=== PATIENT | female | born 1955 | race Caucasian/White ===

== ENCOUNTER 2018-02-07 12:59 | Inpatient (IN) | END 2018-02-14 19:50 | DRG 65 ==

== ENCOUNTER 2018-02-14 20:14 | Inpatient (IN) | END 2018-03-12 15:00 | disposition home health service (06) | DRG 945 ==

== ENCOUNTER 2018-10-10 23:01 | Inpatient (IN) | payer OTHER ==
[~2018-10-10] VITALS: Ht 134.6 cm; Wt 58.0 kg
[~2018-10-10 23:01] MED LIST: AMLO2.5T78 PO; AMOX500C2 PO; ASPI-831 PO; ATOR-2 PO; CLAR500T PO; LISI10TA2 PO; METF-849 PO; PANT40TA4 PO
[2018-10-11] MEDS ORDERED: ONDANSETRON 4 MG INJ IV STA (00:41)
[2018-10-11] MEDS ORDERED: morphine 4 MG/ML VIAL IV STA (00:41)
[2018-10-11] MEDS ORDERED: SOD CHLORIDE 0.9% 500 ML IV STA (00:41)
[2018-10-11] MEDS ORDERED: ONDANSETRON 4 MG INJ IV PRN ×2 (04:00→13:30)
[2018-10-11] MEDS ORDERED: ACETAMINOPHEN 325 MG TAB PO PRN ×2 (04:00→13:30)
--- NOTE | 2018-10-11 05:47 | ERD ---
ER Documentation Chief Complaint Chief Complaint ABD PAIN NO N/V/D/C; STARTED THIS EVEING; HX OF DM HPI Is a 63-year-old female coming with abdominal pain. She denies nausea vomiting diarrhea or constipation. Patient said the pain started earlier this evening. Patient has a known pelvic mass and has not sought outpatient treatment as of yet. Denies any fevers or chills. Denies any other current complaints. Pain is mild to moderate intensity with no exacerbating or alleviating factors with no radiations. ROS All systems reviewed and are negative except as per history of present illness. Medications Home Meds Active Scripts Pantoprazole* (Pantoprazole*) 40 Mg Tablet.dr, 40 MG PO BID@0600,1800, #60 TAB Prov:LINDA LINTON NP 02/12/18 Aspirin (Aspirin) 81 Mg Chew, 81 MG PO DAILY, #30 TAB Prov:LINDA LINTON NP 02/12/18 Lisinopril* (Lisinopril*) 10 Mg Tablet, 10 MG PO BID, #60 TAB Prov:LINDA LINTON NP 02/12/18 Atorvastatin* (Atorvastatin*) 80 Mg Tablet, 80 MG PO HS, #30 TAB Prov:LINDA LINTON NP 02/12/18 Amlodipine Besylate* (Amlodipine Besylate*) 2.5 Mg Tablet, 2.5 MG PO DAILY, #30 TAB Prov:LINDA LINTON NP 02/12/18 Amoxicillin* (Amoxicillin*) 500 Mg Cap, 500 MG PO BID, #20 CAP Stop date 02/20/2018. Prov:LINDA LINTON NP 02/12/18 Clarithromycin* (Clarithromycin*) 500 Mg Tablet, 500 MG PO BID for 5 Days, TAB Stop date 02/17/2018 Prov:LINDA LINTON NP 02/12/18 Reported Medications Metformin* (Glucophage*) 500 Mg Tab, 500 MG PO BID WITH MEALS, #90 TAB 02/07/18 Allergies Allergies: Coded Allergies: No Known Allergy (Unverified , 02/07/18) PMhx/Soc History of Surgery: Yes Anesthesia Reaction: No Hx Neurological Disorder: No (none prior to current medical condition) Hx Respiratory Disorders: No Hx Cardiac Disorders: Yes Hx Psychiatric Problems: No Hx Miscellaneous Medical Probl: Yes Hx Alcohol Use: No Hx Substance Use: No Hx Tobacco Use: No Physical Exam Vitals Vital Signs Date Temp Pulse Resp B/P (MAP) Pulse Ox O2 O2 Flow FiO2 Time Delivery Rate 10/10/18 98.3 87 19 133/65 100 23:03 (87) Physical Exam Const: No acute distress Head: Atraumatic Eyes: Normal Conjunctiva ENT: Normal External Ears, Nose and Mouth. Neck: Full range of motion. No meningismus. Resp: Clear to auscultation bilaterally Cardio: Regular rate and rhythm, no murmurs Abd: Soft, non tender, non distended. Normal bowel sounds Skin: No petechiae or rashes Back: No midline or flank tenderness Ext: No cyanosis, or edema Neur: Awake and alert Psych: Normal Mood and Affect Result Diagram: 10/11/18 0054 10/11/18 0054 Results 24 hrs Laboratory Tests Test 10/11/18 00:40 10/11/18 00:54 Urine Color YELLOW Urine Clarity CLEAR Urine pH 6.0 Urine Specific [place] 1.008 Urine Ketones NEGATIVE mg/dL Urine Nitrite NEGATIVE mg/dL Urine Bilirubin NEGATIVE mg/dL Urine Urobilinogen NEGATIVE mg/dL Urine Leukocyte Esterase NEGATIVE Brandie/ul Urine Hemoglobin NEGATIVE mg/dL Urine Glucose NEGATIVE mg/dL Urine Total Protein NEGATIVE mg/dl White Blood Count 13.7 10^3/ul Red Blood Count 4.51 10^6/ul Hemoglobin 12.2 g/dl Hematocrit 37.7 % Mean Corpuscular Volume 83.6 fl Mean Corpuscular Hemoglobin 27.1 pg Mean Corpuscular Hemoglobin Concent 32.4 g/dl Red Cell Distribution Width 13.3 % Platelet Count 366 10^3/UL Mean Platelet Volume 10.0 fl Immature Granulocytes % 0.400 % Neutrophils % 72.2 % Lymphocytes % 19.5 % Monocytes % 4.6 % Eosinophils % 2.6 % Basophils % 0.7 % Nucleated Red Blood Cells % 0.0 /100WBC Immature Granulocytes # 0.050 10^3/ul Neutrophils # 9.9 10^3/ul Lymphocytes # 2.7 10^3/ul Monocytes # 0.6 10^3/ul Eosinophils # 0.4 10^3/ul Basophils # 0.1 10^3/ul Nucleated Red Blood Cells # 0.0 10^3/ul Sodium Level 139 mmol/L Potassium Level 4.0 mmol/L Chloride Level 101 mmol/L Carbon Dioxide Level 24 mmol/L Anion Gap 14 Blood Urea Nitrogen 11 mg/dl Creatinine 0.99 mg/dl Est Glomerular Filtrat Rate mL/min 56 mL/min Glucose Level 118 mg/dl Calcium Level 10.2 mg/dl Total Bilirubin 0.6 mg/dl Direct Bilirubin 0.00 mg/dl Indirect Bilirubin 0.6 mg/dl Aspartate Amino Transf (AST/SGOT) 24 IU/L Alanine Aminotransferase (ALT/SGPT) 27 IU/L Alkaline Phosphatase 127 IU/L Troponin I < 0.012 ng/ml Total Protein 9.0 g/dl Albumin 4.7 g/dl Globulin 4.30 g/dl Albumin/Globulin Ratio 1.09 Lipase 140 U/L Current Medications Medications Dose Sig/Asha Start Time Status Last (Trade) Ordered Route PRN Stop Time Admin Dose Reason Admin Sodium 500 ml @ Q1H STAT 10/11/18 DC 10/11/18 Chloride 500 mls/hr IV 00:41 00:54 10/11/18 01:40 Morphine 4 mg ONCE STAT 10/11/18 DC 10/11/18 Sulfate IV 00:41 00:54 (morphine) 10/11/18 00:43 Ondansetron 4 mg ONCE STAT 10/11/18 DC 10/11/18 HCl (Zofran IV 00:41 00:54 Inj) 10/11/18 00:43 Ondansetron 4 mg BRIDGE ORDER 10/11/18 HCl (Zofran PRN IV 04:00 Inj) NAUSEA/VOMITI 10/12/18 03:59 NG 650 mg ER BRIDGE 10/11/18 Acetaminophen PRN PO 04:00 (Tylenol .MILD PAIN 10/12/18 03:59 Tab) 1-3 OR TEMP Procedures/MDM EKG: Rate/Rhythm: [Normal Sinus Rhythm] QRS, ST, T-waves: [No changes consistent w/ acute ischemia] Impression: [No evidence of ischemia or arrhythmia] Chest X-ray 1V Interpreted by me: Soft Tissue: No acute abnormalities Bones: No acute abnormalities Mediastinum/Cardiac Silhouette/Lungs: [No acute abnormalities] Medical decision makin-year-old female comes of planes of abdominal pain. She has an enlarging cystic pelvic structure. This is likely neoplastic. Patient will need to be transferred for higher level of care. [facility] has been made aware. They are trying to place the patient. Will be endorsed oncoming physician at 6 AM. Departure Diagnosis: Primary Impression: Abdominal pain Abdominal location: unspecified location Qualified Codes: R10.9 - Unspecified abdominal pain Additional Impression: Abdominal or pelvic swelling, mass, or lump, right lower quadrant Condition: Stable DOMINIQUE FARMER Oct 11, 2018 05:47
[2018-10-11 08:15] VITALS: Ht 134.6 cm; Wt 58.0 kg
[2018-10-11 08:24] VITALS: BP 147/66; PULSE 59; RESP 18
--- NOTE | 2018-10-11 13:19 | HP ---
Date/Time of Note Date/Time of Note DATE: 10/11/18 TIME: 13:12 Assessment/Plan VTE Prophylaxis SCD applied (from Nsg): Yes Pharmacological prophylaxis: NA/contraindicated Pharm contraindication: low risk/ambulating Lines/Catheters IV Catheter Type (from Nrsg): Saline Lock Assessment/Plan Hospital Course SUBJECTIVE: Currently patient's pain is improved. OBJECTIVE: Vital signs-see below PHYSICAL EXAM: Constitutional: Well-developed, adequately built, lying in bed comfortably. Psych: nl mood/affect, no complaints Head: atraumatic, normocephalic Eyes: nl conjunctiva, nl sclera ENMT: mucosa pink and moist, nl external ears & nose Neck: non-tender, supple Respiratory: clear to auscultation, normal air movement Cardiovascular: nl pulses, regular rate and rhythm Gastrointestinal: Tenderness to lower abdomen/pelvic area. No rebound tenderness. bowel sounds active in all 4 quadrants. Musculoskeletal/extremities: LUE 4/5-mild drift, all other extremity 5 out of 5. + Numbness/heaviness left upper/lower extremities.Normal pulses,no cyanosis, no edema. Neurological: Alert oriented 3,nl speech, nl strength Skin: nl turgor ASSESSMENT/PLAN: 62-year-old female with htn/dm2/hyperlipidemia,CVA 2018, ovarian cystic mass which was diagnosed incidentally with her previous admission 2018 for CVA, presented to the emergency room with lower abdominal pain, found to have increasing size of ovarian cystic mass.. 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 We will repeat this -consultation with UNIT SECRETARY/oncology Dr. Cruz requested from the ER Leukocytosis, likely reactive -We will order cultures, no indication for antimicrobials at this time. History of R basal ganglia CVA 2018 -No new focal defect -Hold aspirin for now in light of possible surgical intervention if indicated per UNIT SECRETARY/oncology this admission. Continue statin Hypertension -Resume lisinopril/amlodipine DMII -Hold metformin and start basal/bolus insulin. Hyperlipidemia -Resume statin DVT prophylaxis: SCDs PUD prophylaxis: PPI CODE STATUS: Full code Diet: Carbohydrate controlled/low-cholesterol diet. Rest of the management depend on hospital course. Approximately 60-minute was spent on this history and physical. Patient was seen in collaboration with Dr. Gomez. Result Diagram: 10/11/18 0054 10/11/18 0054 Results 24hrs Laboratory Tests Test 10/11/18 00:40 10/11/18 00:54 Urine Color YELLOW Urine Clarity CLEAR Urine pH 6.0 Urine Specific [place] 1.008 Urine Ketones NEGATIVE Urine Nitrite NEGATIVE Urine Bilirubin NEGATIVE Urine Urobilinogen NEGATIVE Urine Leukocyte Esterase NEGATIVE Urine Hemoglobin NEGATIVE Urine Glucose NEGATIVE Urine Total Protein NEGATIVE White Blood Count 13.7 #H Red Blood Count 4.51 Hemoglobin 12.2 Hematocrit 37.7 Mean Corpuscular Volume 83.6 Mean Corpuscular Hemoglobin 27.1 L Mean Corpuscular Hemoglobin Concent 32.4 Red Cell Distribution Width 13.3 Platelet Count 366 # Mean Platelet Volume 10.0 Immature Granulocytes % 0.400 Neutrophils % 72.2 Lymphocytes % 19.5 Monocytes % 4.6 Eosinophils % 2.6 Basophils % 0.7 Nucleated Red Blood Cells % 0.0 Immature Granulocytes # 0.050 H Neutrophils # 9.9 H Lymphocytes # 2.7 Monocytes # 0.6 Eosinophils # 0.4 Basophils # 0.1 Nucleated Red Blood Cells # 0.0 Sodium Level 139 Potassium Level 4.0 Chloride Level 101 Carbon Dioxide Level 24 Anion Gap 14 H Blood Urea Nitrogen 11 Creatinine 0.99 Est Glomerular Filtrat Rate mL/min 56 L Glucose Level 118 Calcium Level 10.2 Total Bilirubin 0.6 Direct Bilirubin 0.00 Indirect Bilirubin 0.6 Aspartate Amino Transf (AST/SGOT) 24 Alanine Aminotransferase (ALT/SGPT) 27 Alkaline Phosphatase 127 H Troponin I < 0.012 Total Protein 9.0 H Albumin 4.7 Globulin 4.30 H Albumin/Globulin Ratio 1.09 Lipase 140 HPI/ROS Admit Date/Time Admit Date/Time Oct 11, 2018 at 03:35 Hx of Present Illness This is a 62-year-old female with a past medical history of CVA diagnosed in 2018, hypertension, type 2 diabetes, hyperlipidemia, ovarian cystic mass which was diagnosed incidentally with her previous admission 2018 for CVA, presented to the emergency room with lower abdominal pain. Patient denied nausea, vomiting, diarrhea, fever, chills, constipation, upper or lower GI bleeding episodes. She also denied chest pain, palpitation, shortness of breath, numbness, tingling, speech difficulties, vision changes or other constitutional symptoms. In the emergency room, patient's CT abdomen and pelvis again demonstrated complex cystic mass arising out of the pelvis probably from the right adnexa extending into the upper abdomen measuring 21.9 x 21.3 x 13.6 cm which has moderately increased in size since prior study in 2018. There was no evidence of bowel obstruction, perforation or other inflammatory process. Patient was given morphine for pain control in the emergency room. UNIT SECRETARY oncology consultat ion with Dr. Cruz was requested from the emergency room who accepted patient. ROS A 12 point review of system was assessed and is negative other than what is mentioned in HPI. PMH/Family/Social Past Medical History See HPI Medications Current Medications Ondansetron HCl (Zofran Inj) 4 mg BRIDGE ORDER PRN IV NAUSEA/VOMITING; Start 10/11/18 at 04:00; Stop 10/12/18 at 03:59 Acetaminophen (Tylenol Tab) 650 mg ER BRIDGE PRN PO .MILD PAIN 1-3 OR TEMP; Start 10/11/18 at 04:00; Stop 10/12/18 at 03:59 Amlodipine Besylate (Norvasc) 2.5 mg DAILY PO ; Start 10/12/18 at 09:00; Status UNV Atorvastatin Calcium (Lipitor) 80 mg HS PO ; Start 10/11/18 at 21:00; Status UNV Lisinopril (Zestril) 10 mg BID PO ; Start 10/11/18 at 21:00; Status UNV Pantoprazole (Protonix Tab) 40 mg BID@0600,1800 PO ; Start 10/11/18 at 18:00; Status UNV Coded Allergies: No Known Allergy (Unverified , 02/07/18) Past Surgical History See HPI Family History Significant Family History: no pertinent family hx Social History Denied history of alcohol, smoking or illicit drug use Smoking Status: Never smoker Exam/Review of Systems Vital Signs Vitals Vital Signs Date Temp Pulse Resp B/P (MAP) Pulse Ox O2 O2 Flow FiO2 Time Delivery Rate 10/11/18 98.6 59 18 147/66 99 Room Air 08:24 (93) LINDA LINTON V. [employer]ENDING PRESS OPERATOR Oct 11, 2018 13:19
[2018-10-11] MEDS ORDERED: DEXTROSE 50% 50 ML SYRINGE IV PRN ×2 (13:30)
[2018-10-11] MEDS ORDERED: BISACODYL (EC) 5 MG TAB PO PRN (13:30)
[2018-10-11] MEDS ORDERED: GLUCOSE GEL 15 GRAM TUBE PO PRN ×2 (13:30)
[2018-10-11] MEDS ORDERED: morphine 2 MG INJ IV PRN (13:30)
[2018-10-11] MEDS ORDERED: DOCUSATE SODIUM 100 MG CAP PO PRN (13:30)
[2018-10-11] MEDS ORDERED: GLUCOSE GEL 15 GRAM TUBE BUCCAL PRN (13:30)
[2018-10-11] MEDS ORDERED: GLUCAGON 1 MG INJ IM PRN (13:30)
[2018-10-11] MEDS ORDERED: NACL 0.9% 3 ML SYG IV SCH (13:30)
[2018-10-11 15:20] VITALS: BP 151/67; PULSE 59; RESP 16
[2018-10-11] MEDS: INSULIN ASPART [NOVOLOG] 3 ML PEN SC SCH ×2 (17:26→21:00)
[2018-10-11] MEDS: PANTOPRAZOLE (EC) 40 MG TAB PO SCH (17:27)
[2018-10-11 19:52] VITALS: BP 177/78; PULSE 60; RESP 18
[2018-10-11] MEDS: ATORVASTATIN 80 MG TAB PO SCH (20:48)
[2018-10-11] MEDS: LISINOPRIL 10 MG TAB PO SCH (20:49)
[2018-10-11] MEDS: INSULIN GLARGINE [LANTus] (100 UNITS/ML) SYG SC SCH (20:53)
[2018-10-12] MEDS: ACCU-CHEK XX SCH (02:00)
[2018-10-12 02:04] VITALS: BP 146/67; PULSE 59; RESP 18
--- NOTE | 2018-10-12 02:10 | QN ---
Documentation Comment Hospitalist discussed this case which is a 63-year-old postmenopausal female who is admitted due to abdominal pain and was noted to have large pelvic mass concerning for ovarian neoplasm. Apparently the patient had prior admission and had labs done in January 2018 after reviewing her chart and was noted to have similar mass which had been increasing in the size. Tumor markers from 2018 reviewed and noted elevated Ca1 25 which is abnormal for this 63-year-old postmenopausal female. Patient apparently lost follow-up as outpatient and presented to the hospital due to abdominal pain. Currently under care of hospitalist who asked me to review records including recent imaging. Discussed with hospitalist the case need to be evaluated by HOT BILLET SHEAR OPERATOR oncologist. There is high likelihood of possibility of ovarian cancer in this postmenopausal female due to increasing size of the pelvic mass as well as elevated Ca1 25. Patient need to proceed with surgical management and surgery should be done by HOT BILLET SHEAR OPERATOR oncologist due to possibility of ovarian cancer. She is a candidate for debulking surgery. She also has some pressure symptoms because of large abdominal mass and associated hydronephrosis. Consultation with HOT BILLET SHEAR OPERATOR oncologist can be placed in this facility or if not feasible at this facility recommended to be transferred to a higher level of care including all [facility] and with HOT BILLET SHEAR OPERATOR oncologist to has expertise in cancer surgery as soon as possible, this can be arranged through outsole caser as well. I have discussed case with hospitalist who is currently primary team. Since the patient had not been compliant or had not capability to have a follow-up as outpatient, recommended this being arranged while the patient is in the hospital. Also recommended repeat labs including Ca1 25, as the most recent baseline lab since her most rec ent Ca1 25 was done in January 2018 and this also can be helpful for postop follow-up as well. If there are any other questions or concerns please contact [facility] hospitalist group. SEVERIANO SHEIKH MD Oct 12, 2018 02:10
[2018-10-12] MEDS: PANTOPRAZOLE (EC) 40 MG TAB PO SCH ×2 (06:10→17:05)
[2018-10-12 07:40] VITALS: BP 179/79; PULSE 58; RESP 18
[2018-10-12] MEDS: INSULIN ASPART [NOVOLOG] 3 ML PEN SC SCH ×4 (08:00→21:00)
[2018-10-12] MEDS ORDERED: AMLODIPINE 2.5 MG TAB PO SCH (09:00)
[2018-10-12] MEDS: LISINOPRIL 10 MG TAB PO SCH ×2 (09:10→21:43)
--- NOTE | 2018-10-12 10:31 | CONS ---
DATE OF ADMISSION: 10/11/2018 DATE OF CONSULTATION: 10/12/2018 HISTORY: This is a 63-year-old female who presented to the Emergency Room with increased abdominal p ain. She underwent imaging studies that show a large abdominopelvic complex cystic mass at 22 x 21 c m. There is no ascites and no carcinomatosis. HISTORY OF PRESENT ILLNESS: Apparently patient was admitted here at [facility] in January 2018 with right basal ganglia cerebrovascular accident. She now has a baseline left-si ded weakness. At that time, the mass was at 19 x 17 cm. There was never a followup from the mass an d now presents here for pain. CA-125 was drawn during this admission and was elevated at 144. G1 on cology consultation was requested. Patient has bleeding. ALLERGIES: NO KNOWN DRUG ALLERGIES. PAST MEDICAL HISTORY: including CVA. She is also a diabetic and has hypercholesterolemia. PAST SURGICAL HISTORY: Unremarkable. PHYSICAL EXAMINATION: VITAL SIGNS: Patient is afebrile, pulse in the 60s. HEENT: Within normal limit. LUNGS: Clear. CARDIAC: Regular. ABDOMEN: Distended with a large mass. PELVIC: Deferred. EXTREMITIES: No edema. IMPRESSION: 21 cm large complex cystic mass increasing in size since 02/2018. RECOMMENDATIONS: 1. The patient needs to be cleared medically, especially in the risk of subsequent ischemia after lu rgery. 2. Once the patient is clear the patient can be discharged home, I can bring the patient back for el ective surgery. 3. I also need to discuss further with family member, the risks and benefits of the procedure since the patient did have a stroke recently. Dictated By: RHONDA YANG MD WL/NTS Conf#: [id number] DID#: [id number] CC: SAUL RICHTER MD;*EndCC*
--- NOTE | 2018-10-12 12:38 | PN ---
Date/Time of Note Date/Time of Note DATE: 10/12/18 TIME: 12:32 Assessment/Plan VTE Prophylaxis Risk score (from Ns)>0 risk: 2 SCD applied (from Ns): No SCD contraindicated: other Pharmacological prophylaxis: NA/contraindicated Pharm contraindication: low risk/ambulating Lines/Catheters IV C[facility]ter Type [facility]from [facility] Saline Lock Assessment/Plan Hospital Course SUBJECTIVE: No acute episodes. OBJECTIVE: Vital signs-see below PHYSICAL EXAM: Constitutional: Well-developed, adequately built, lying in bed comfortably. Psych: nl mood/affect, no complaints Head: atraumatic, normocephalic Eyes: nl conjunctiva, nl sclera ENMT: mucosa pink and moist, nl external ears & nose Neck: non-tender, supple Respiratory: clear to auscultation, normal air movement Cardiovascular: nl pulses, regular rate and rhythm Gastrointestinal: Tenderness to lower abdomen/pelvic area. No rebound tenderness. bowel sounds active in all 4 quadrants. Musculoskeletal/extremities: LUE 4/5-mild drift, all other extremity 5 out of 5. + Numbness/heaviness left upper/lower extremities.Normal pulses,no cyanosis, no edema. Neurological: Alert oriented 3,nl speech, nl strength Skin: nl turgor ASSESSMENT/PLAN: 62-year-old female with htn/dm2/hyperlipidemia,CVA 2018, ovarian cystic mass which was diagnosed incidentally with her previous admission 2018 for CVA, presented to the emergency room with lower abdominal pain, found to have increasing size of ovarian cystic mass.. Large complex ovarian cystic mass, highly suspicious for ovarian neoplasm -CA 125 increased to 144. Appreciate PRODUCTION DRILLING MACHINE OPERATOR follow-up who recommended elective surgery. We will proceed with a cardiology preop clearance in light of recent CVA in January 2018. Go ahead and obtain twelve-lead EKG, serial troponin. Discussed with neurologist over the phone and since stroke has been over 6 months with no new deficit, no further neuro work-up needed prior to any surgical procedures. History of R basal ganglia CVA 2018 -No new focal defect -Continue aspirin/statin.(Since TRANSPLANT SURGEON surgery is going to be elective, aspirin can be held 5 days prior to elective surgical date) Hypertension -Continue lisinopril/amlodipine-will slightly uptitrate DMII -stable -basal/ISS insulin. Hyperlipidemia -on statin DVT prophylaxis: SCDs PUD prophylaxis: PPI CODE STATUS: Full code Diet: Carbohydrate controlled/low-cholesterol diet. Disposition: TRANSPLANT SURGEON oncology recommended elective surgery for ovarian mass. We will call cardiology for preop clearance in light of recent CVA January 2018. Also discussed with neurologist over the phone and no further neuro work-up indicated prior to any surgical procedure as stroke has been over 6 months old and patient with no new deficit. Once cardiology clearance obtained, likely DC in a.m. with outpatient follow-up with PRODUCTION DRILLING MACHINE OPERATOR with eventual plan of bringing patient back for surgery sometimes next week. Patient was seen in collaboration with Dr. Gomez. Result Diagram: 10/12/1851810/12/18518 Results 24hrs Laboratory Tests Test 10/11/18 17:26 10/11/18 20:47 10/12/18 05:19 10/12/18 08:08 Bedside Glucose 97 139 80 White Blood Count 7.7 # Red Blood Count 4.05 L Hemoglobin 11.0 L Hematocrit 33.6 L Mean Corpuscular 83.0 Volume Mean Corpuscular 27.2 L Hemoglobin Mean Corpuscular 32.7 Hemoglobin Concent Red Cell 13.2 Distribution Width Platelet Count 326 Mean Platelet Volume 10.1 Immature 0.300 Granulocytes % Neutrophils % 54.1 Lymphocytes % 33.3 Monocytes % 6.3 Eosinophils % 4.8 Basophils % 1.2 Nucleated Red Blood 0.0 Cells % Immature 0.020 Granulocytes # Neutrophils # 4.2 Lymphocytes # 2.6 Monocytes # 0.5 Eosinophils # 0.4 Basophils # 0.1 Nucleated Red Blood 0.0 Cells # Sodium Level 142 Potassium Level 4.6 Chloride Level 107 Carbon Dioxide Level 28 Anion Gap 7 Blood Urea Nitrogen 10 Creatinine 0.84 Est Glomerular > 60 Filtrat Rate mL/min Glucose Level 76 # Hemoglobin A1c 5.9 Calcium Level 9.7 Phosphorus Level 4.4 Magnesium Level 1.8 Total Bilirubin 0.9 Direct Bilirubin 0.00 Indirect Bilirubin 0.9 Aspartate Amino 23 Transf (AST/SGOT) Alanine 16 Aminotransferase (AL T/SGPT) Alkaline Phosphatase 84 Total Protein 7.2 # Albumin 3.8 Globulin 3.40 H Albumin/Globulin 1.11 Ratio Triglycerides Level 123 Cholesterol Level 193 LDL Cholesterol, 129 Calculated HDL Cholesterol 39 Cholesterol/HDL 4.9 Ratio Exam/Review of Systems Exam Vitals Vital Signs Date Temp Pulse Resp B/P (MAP) Pulse Ox O2 O2 Flow FiO2 Time Delivery Rate 10/12/18 97.9 58 18 179/79 96 07:40 (112) 10/11/18 Room Air 19:52 Intake and Output 10/11/18 10/11/18 10/12/18 1515:00 23:00 07:00 IntakeIntake Total 100 ml OutputOutput Total 200 ml 400 ml BalanceBalance -200 ml -300 ml Results Results 24hrs Laboratory Tests Test 10/11/18 17:26 10/11/18 20:47 10/12/18 05:19 10/12/18 08:08 Bedside Glucose 97 139 80 White Blood Count 7.7 # Red Blood Count 4.05 L Hemoglobin 11.0 L Hematocrit 33.6 L Mean Corpuscular 83.0 Volume Mean Corpuscular 27.2 L Hemoglobin Mean Corpuscular 32.7 Hemoglobin Concent Red Cell 13.2 Distribution Width Platelet Count 326 Mean Platelet Volume 10.1 Immature 0.300 Granulocytes % Neutrophils % 54.1 Lymphocytes % 33.3 Monocytes % 6.3 Eosinophils % 4.8 Basophils % 1.2 Nucleated Red Blood 0.0 Cells % Immature 0.020 Granulocytes # Neutrophils # 4.2 Lymphocytes # 2.6 Monocytes # 0.5 Eosinophils # 0.4 Basophils # 0.1 Nucleated Red Blood 0.0 Cells # Sodium Level 142 Potassium Level 4.6 Chloride Level 107 Carbon Dioxide Level 28 Anion Gap 7 Blood Urea Nitrogen 10 Creatinine 0.84 Est Glomerular > 60 Filtrat Rate mL/min Glucose Level 76 # Hemoglobin A1c 5.9 Calcium Level 9.7 Phosphorus Level 4.4 Magnesium Level 1.8 Total Bilirubin 0.9 Direct Bilirubin 0.00 Indirect Bilirubin 0.9 Aspartate Amino 23 Transf (AST/SGOT) Alanine 16 Aminotransferase (AL T/SGPT) Alkaline Phosphatase 84 Total Protein 7.2 # Albumin 3.8 Globulin 3.40 H Albumin/Globulin 1.11 Ratio Triglycerides Level 123 Cholesterol Level 193 LDL Cholesterol, 129 Calculated HDL Cholesterol 39 Cholesterol/HDL 4.9 Ratio Medications Medication Current Medications Amlodipine Besylate (Norvasc) 2.5 mg DAILY PO Last administered on 10/12/18at 09:10; Admin Dose 2.5 MG; Start 10/12/18 at 09:00 Atorvastatin Calcium (Lipitor) 80 mg HS PO Last administered on 10/11/18at 20:48; Admin Dose 80 MG; Start 10/11/18 at 21:00 Lisinopril (Zestril) 10 mg BID PO Last administered on 10/12/18at 09:10; Admin Dose 10 MG; Start 10/11/18 at 21:00 Pantoprazole (Protonix Tab) 40 mg BID@0600,1800 PO Last administered on 10/12/18at 06:10; Admin Dose 40 MG; Start 10/11/18 at 18:00 IV Flush (NS 3 ml) 3 ml PER PROTOCOL IV ; Start 10/11/18 at 13:30 Ondansetron HCl (Zofran Inj) 4 mg Q6H PRN IV NAUSEA/VOMITING; Start 10/11/18 at 13:30 Acetaminophen (Tylenol Tab) 650 mg Q6H PRN PO .PAIN 1-3 OR TEMP; Start 10/11/18 at 13:30 Morphine Sulfate (morphine) 2 mg Q4H PRN IV .SEVERE PAIN 7-10; Start 10/11/18 at 13:30 Docusate Sodium (Colace) 100 mg Q12H PRN PO .CONSTIPATION; Start 10/11/18 at 13:30 Bisacodyl (Dulcolax) 5 mg DAILY PRN PO .CONSTIPATION; Start 10/11/18 at 13:30 Diagnostic Test (Pha) (Accu-Chek) 1 ea 02 XX ; Start 10/12/18 at 02:00 Insulin Glargine (Lantus) 9 units DAILY@2000 SC Last administered on 10/11/18at 20:53; Admin Dose 9 UNITS; Start 10/11/18 at 20:00 Insulin Aspart (Novolog Insulin Pen) NOVOLOG *MILD* ALGORITHM WITH MEALS BEDTIME SC ; Start 10/11/18 at 18:00 Miscellaneous Information 1 ea NOTE XX ; Start 10/11/18 at 13:30 Glucose (Glutose) 15 gm Q15M PRN PO DECREASED GLUCOSE; Start 10/11/18 at 13:30 Glucose (Glutose) 22.5 gm Q15M PRN PO DECREASED GLUCOSE; Start 10/11/18 at 13:30 Dextrose (D50w Syringe) 25 ml Q15M PRN IV DECREASED GLUCOSE; Start 10/11/18 at 13:30 Dextrose (D50w Syringe) 50 ml Q15M PRN IV DECREASED GLUCOSE; Start 10/11/18 at 13:30 Glucagon (Glucagen) 1 mg Q15M PRN IM DECREASED GLUCOSE; Start 10/11/18 at 13:30 Glucose (Glutose) 15 gm Q15M PRN BUCCAL DECREASED GLUCOSE; Start 10/11/18 at 13:30 LINDA LINTON NP Oct 12, 2018 12:38
[2018-10-12] MEDS ORDERED: AMLODIPINE 2.5 MG TAB PO ONE (13:00)
[2018-10-12 13:34] VITALS: BP 140/93; PULSE 60; RESP 16
[2018-10-12] MEDS: ASPIRIN 81 MG TAB PO SCH (17:05)
[2018-10-12 20:22] VITALS: BP 167/74; PULSE 74; RESP 17
[2018-10-12 21:30] VITALS: BP 145/65; PULSE 74
[2018-10-12] MEDS: ATORVASTATIN 80 MG TAB PO SCH (21:43)
[2018-10-12] MEDS: INSULIN GLARGINE [LANTus] (100 UNITS/ML) SYG SC SCH (21:57)
[2018-10-12 22:45] VITALS: BP 133/63; PULSE 68
--- NOTE | 2018-10-12 23:17 | CONS ---
DATE OF ADMISSION: 10/11/2018 DATE OF CONSULTATION: 10/12/2018 REASON FOR CONSULTATION: Preoperative evaluation. REQUESTING PHYSICIAN: Dr. Hays from the hospitalist service. HISTORY OF PRESENT ILLNESS: Ms. Fernando is a 63-year-old female with history of right basal ga nglia CVA in February of 2018, hypertension, diabetes mellitus, dyslipidemia who presented with compl aints of abdominal pain, worse in the last few weeks. Initially upon arrival, temperature 98.3, bloo d pressure 132/65, pulse 87, respiratory rate 19, satting 100%. The patient's labs showed white coun t 13.7, hemoglobin 12.2, platelet count 366. Sodium 142, potassium 4.6, creatinine 0.8, BUN 10, trop onin negative. Albumin 3.8, LDL 129, HDL 39. CA-125 144. Lipase 140. The patient underwent a ches t x-ray revealing atherosclerosis of thoracic aorta and an abdominal pelvic CT which then revealed a progressive enlargement of the complex cystic pelvic mass described on prior studies. Mild bilateral hydronephrosis, probably secondary to ureteral compression, bilateral ovarian mass. The patient's el ectrocardiogram revealed sinus rhythm, rate of 76, normal axis with anterior T-wave inversion and a s adiel PVC. The patient is admitted to the floor and since admitted to floor, denies chest pain, yaneth es prior myocardial infarction. PAST MEDICAL HISTORY: As above in HPI. MEDICATIONS CURRENTLY IN HOSPITAL: 1. Norvasc 5 mg daily. 2. Lipitor 80 mg at bedtime. 3. Zestril 10 mg b.i.d. 4. Lantus. 5. Protonix. 6. Morphine p.r.n. ALLERGIES: NO KNOWN DRUG ALLERGIES. SOCIAL HISTORY: No current tobacco, ETOH or illicit drug use. FAMILY HISTORY: No sudden cardiac or early CAD. REVIEW OF SYSTEMS: As above in HPI. CONSTITUTIONAL: No fevers, chills. PULMONARY: No current shortness of breath. CARDIOVASCULAR: No current chest pain. GASTROINTESTINAL: Nausea, poor p.o. intake. GENITOURINARY: Large mass. MUSCULOSKELETAL: Degenerative joint disease. PSYCHIATRIC: No documented psych history. NEUROLOGIC: History of cerebrovascular accident. PHYSICAL EXAMINATION: VITAL SIGNS: Temperature 98.4, blood pressure most recently 140/93, pulse 60, respiratory rate 16, s atting 98%. GENERAL: The patient is alert, awake, no acute distress. NECK: JVP approximately at 8 cm of water. CHEST: Fair air movement throughout. HEART: Regular rate and rhythm. Normal S1, S2, I/ systolic murmur, nondisplaced PMI. ABDOMEN: Distended. Very full. Able to palpate the patient's mass. Hypoactive bowel sounds. EXTREMITIES: No edema, 1+ pulses bilateral posterior tibial. LABORATORY DATA: Most recently from the . Sodium 142, potassium 4.6, creatinine of 0.84, BUN 10 , troponin negative x 2. LDL 129, HDL 39. IMAGING STUDIES: As above in HPI. No further imaging studies for my review at this time. ECG: As above in HPI. No further electrocardiograms for my review at this time. IMPRESSION: 1. Preoperative evaluation prior to resection of a large pelvic mass, complex cystic structure. 2. Abnormal electrocardiogram with anterior T-wave inversion. 3. Hypertension, labile with addition of new antihypertensive today. 4. Dyslipidemia. 5. History of cerebrovascular accident. 6. Diabetes mellitus. 7. Abdominal pain secondary to a pelvic mass. RECOMMENDATIONS: 1. At this time, would complete the patient's rule out for myocardial infarction. His EKG abnormali ties are chronic in nature and not due to any recent acute coronary syndromes and thus send a final t roponin. 2. Continue the patient's current ADILSON inhibitor and Norvasc, following blood pressure closely after receiving. 3. Continue the patient's high dose statin at this time. 4. The patient had likely been on aspirin which has been held in the setting of possible need for lu rgery. 5. Check a 2D echo for reassessment of patient's ejection fraction, wall motion and major abnormalit ies and given the patient's history of stroke, multiple cardiac risk factors, I believe this patient would benefit from a cardiac stress test. That has been scheduled to take place first thing in the [facility]. Thank you for allowing me to take part in the care of this patient. I will continue to follow along very closely with you. Further recommendations to be made as the patient progresses through his [facility] clinical course. Dictated By: YONATAN CALDERA/NOELLE Conf#: [id number] DID#: [id number] CC: LINDA LINTON NP; SAUL HAYS MD;*[facility]*
[2018-10-13] MEDS: ACCU-CHEK XX SCH (02:00)
[2018-10-13 02:07] VITALS: BP 145/69; PULSE 78; RESP 18
[2018-10-13 02:30] VITALS: BP 132/60; PULSE 69
[2018-10-13] MEDS: PANTOPRAZOLE (EC) 40 MG TAB PO SCH (06:59)
[2018-10-13 07:31] VITALS: BP 131/60; PULSE 82; RESP 18
[2018-10-13] MEDS: INSULIN ASPART [NOVOLOG] 3 ML PEN SC SCH ×2 (08:00→12:00)
[2018-10-13] MEDS ORDERED: AMLODIPINE 2.5 MG TAB PO SCH (09:00)
[2018-10-13] MEDS: LISINOPRIL 10 MG TAB PO SCH (09:14)
[2018-10-13] MEDS: ASPIRIN 81 MG TAB PO SCH (09:14)
[2018-10-13] MEDS ORDERED: REGADENOSON 0.4 MG/5 ML SYG ONE (11:07)
--- NOTE | 2018-10-13 13:12 | CONS ---
Assessment/Plan Assessment/Plan Hospital Course (Demo Recall) IMPRESSION: 1. Preoperative evaluation prior to resection of a large pelvic mass, complex cystic structure.-neg trop x 3 2. Abnormal electrocardiogram with anterior T-wave inversion.-neg trop x 3 3. Hypertension-reasonable control currently 4. Dyslipidemia. 5. History of cerebrovascular accident. 6. Diabetes mellitus. 7. Abdominal pain secondary to a pelvic mass. Recc: -Tele -serial ecg's -Continue asa -Continue ACEI/Norvasc and follow Bp closely -Will f/u echo -Lexiscan stress test today Consultation Date/Type/Reason Admit Date/Time Oct 11, 2018 at 03:35 Initial Consult Date 10/12/18 Type of Consult Cardiology Reason for Consultation preop Requesting Provider: LINDA LINTON NP Date/Time of Note DATE: 10/13/18 TIME: 13:08 Exam/Review of Systems Vital Signs Vitals Vital Signs Date Temp Pulse Resp B/P (MAP) Pulse Ox O2 O2 Flow FiO2 Time Delivery Rate 10/13/18 98.1 82 18 131/60 97 Room Air 07:31 (83) Intake and Output 10/12/18 10/12/18 10/13/18 1515:00 23:00 07:00 IntakeIntake Total 620 ml 80 ml BalanceBalance 620 ml 80 ml Exam Exam Review of Systems: CONSTITUTIONAL: No fevers, chills. PULMONARY: No sob CARDIOVASCULAR: No chest pain/palpitations GASTROINTESTINAL: mild abd pain GENITOURINARY: No hematuria/dysuria. MUSCULOSKELETAL: No myagias/arthalgias. PSYCHIATRIC: The patient denies depression. NEUROLOGIC: No weakness Constitutional: alert Psych: no complaints Head: normocephalic ENMT: mucosa pink and moist Neck: supple, jvd (8 cm water) Respiratory: clear to auscultation Cardiovascular: regular rate and rhythm Gastrointestinal: mass (can be palpated in abdomen), tender (mild to palpation) Labs Result Diagram: 10/12/1851810/12/18518 Results 24hrs Laboratory Tests Test 10/12/18 17:23 10/12/18 18:42 10/12/18 21:46 10/13/18 00:18 Bedside Glucose 95 85 Creatine Kinase 53 54 Creatine Kinase 1.3 1.5 Index Creatinine Kinase MB 0.69 0.83 (Mass) Troponin I < 0.012 0.013 Test 10/13/18 07:52 10/13/18 08:27 Bedside Glucose 66 L 129 Medications Medications Current Medications Atorvastatin Calcium (Lipitor) 80 mg HS PO Last administered on 10/12/18at 21:43; Admin Dose 80 MG; Start 10/11/18 at 21:00 Lisinopril (Zestril) 10 mg BID PO Last administered on 10/13/18at 09:14; Admin Dose 10 MG; Start 10/11/18 at 21:00 Pantoprazole (Protonix Tab) 40 mg BID@0600,1800 PO Last administered on 10/13/18at 06:59; Admin Dose 40 MG; Start 10/11/18 at 18:00 IV Flush (NS 3 ml) 3 ml PER PROTOCOL IV Last administered on 10/12/18at 21:44; Admin Dose 3 ML; Start 10/11/18 at 13:30 Ondansetron HCl (Zofran Inj) 4 mg Q6H PRN IV NAUSEA/VOMITING; Start 10/11/18 at 13:30 Acetaminophen (Tylenol Tab) 650 mg Q6H PRN PO .PAIN 1-3 OR TEMP; Start 10/11/18 at 13:30 Morphine Sulfate (morphine) 2 mg Q4H PRN IV .SEVERE PAIN 7-10; Start 10/11/18 at 13:30 Docusate Sodium (Colace) 100 mg Q12H PRN PO .CONSTIPATION; Start 10/11/18 at 13:30 Bisacodyl (Dulcolax) 5 mg DAILY PRN PO .CONSTIPATION; Start 10/11/18 at 13:30 Diagnostic Test (Pha) (Accu-Chek) 1 ea 02 XX ; Start 10/12/18 at 02:00 Insulin Glargine (Lantus) 9 units DAILY@2000 SC Last administered on 10/11/18at 20:53; Admin Dose 9 UNITS; Start 10/11/18 at 20:00 Insulin Aspart (Novolog Insulin Pen) NOVOLOG *MILD* ALGORITHM WITH MEALS BEDTIME SC ; Start 10/11/18 at 18:00 Miscellaneous Information 1 ea NOTE XX ; Start 10/11/18 at 13:30 Glucose (Glutose) 15 gm Q15M PRN PO DECREASED GLUCOSE; Start 10/11/18 at 13:30 Glucose (Glutose) 22.5 gm Q15M PRN PO DECREASED GLUCOSE; Start 10/11/18 at 13: 30 Dextrose (D50w Syringe) 25 ml Q15M PRN IV DECREASED GLUCOSE; Start 10/11/18 at 13:30 Dextrose (D50w Syringe) 50 ml Q15M PRN IV DECREASED GLUCOSE; Start 10/11/18 at 13:30 Glucagon (Glucagen) 1 mg Q15M PRN IM DECREASED GLUCOSE; Start 10/11/18 at 13:30 Glucose (Glutose) 15 gm Q15M PRN BUCCAL DECREASED GLUCOSE; Start 10/11/18 at 13:30 Amlodipine Besylate (Norvasc) 5 mg DAILY PO Last administered on 10/13/18at 09:14; Admin Dose 5 MG; Start 10/13/18 at 09:00 Aspirin (Aspirin) 81 mg DAILY PO Last administered on 10/13/18at 09:14; Admin Dose 81 MG; Start 10/12/18 at 16:00 YONATAN MARTINEZ Oct 13, 2018 13:12
--- NOTE | 2018-10-13 13:41 | CARRPT ---
DATE OF PROCEDURE: 10/13/2018 REASON FOR STRESS TESTING: Preoperative. BASELINE VITAL SIGNS AND ELECTROCARDIOGRAM: Pulse 76, blood pressure of 140/85. Electrocardiogram reveals normal sinus rhythm, rate of 75, normal axis, normal intervals, inferior T-wave inversion. PROCEDURE: The patient underwent standard Lexiscan infusion protocol over 10 seconds followed by radiolabeledtracer. The patient's test was stopped due to completion of protocol. Maximum blood pressure during the test 148/65. Maximum heart rate during the test 92. ELECTROCARDIOGRAM FINDINGS: The patient did not develop any new Lexiscan- induced ST or T-wave changes from baseline abnormalities. No documented PVCs. SYMPTOMS: The patient had moderate complaints of abdominal discomfort. No chest pain, no shortness of breath during stress testing. IMPRESSION: 1. No Lexiscan-induced ST or T-wave changes from baseline abnormalities or diagnostic cardiac ischemia. 2. No complaints of chest pain or shortness breath during stress testing. 3. No documented premature ventricular contractions during stress testing. 4. Report of nuclear images to follow. Dictated By: YONATAN CALDERA/NOELLE Conf#: [id number] DID#: [id number] CC: SAUL RICHTER MD;*EndCC* MTDD
[2018-10-13 14:17] VITALS: BP 170/77; PULSE 89; RESP 18
--- NOTE | 2018-10-13 17:13 | RADRPT ---
Echocardiogram Report Patient Name: GONZALEZ CORONAPatient ID: [id number] : 1955 (63y 2m)Study Date: 10/13/2018 12:45:00 PM Gender: FAccession #: [id number] [place] [facility] [place] [facility] Ref.Physician: YONATAN LEYVA Height(Cm): 135 BSA: 1.47Weight(Kg): 57.6 Quality: AdequateOrder Physician: YONATAN LEYVA Account #: Procedures: Echocardiographic Report: Transthoracic echocardiogram with complete 2D, M-Mode, and doppler examination. Indications: Pre-op. Measurements: 2D/M Mode Doppler Measurement Value Normal Range Measurement Value Normal Range LVIDd 2D 3.8 [ 3.8 - 5.2 ] cm AV Peak Ted 1.5 [ 100.0 - 170.0 ] cm/se c LVIDs 2D 2.5 [ 2.2 - 3.5 ] cm AV Peak PG 9.0 [ 2.0 - 9.0 ] mmHg LVPWd 2D 0.7 [ 0.6 - 0.9 ] cm AI Peak PG 64.0 mmHg IVSd 2D 0.7 [ 0.6 - 0.9 ] cm AI Peak Ted 4.0 cm/sec AoR Diam 2D 2.6 [ 2.3 - 3.1 ] cm AI PHT 656.0 msec EDV 2D 60.8 [ 46.0 - 106.0 ] ml LVOT Peak Ted 0.8 [ 70.0 - 110.0 ] cm/sec ESV 2D 21.4 [ 14.0 - 42.0 ] ml LVOT Peak PG 3.0 [ 2.0 - 6.0 ] mmHg EF 2D 64.8 [ 54.0 - 74.0 ] percent MV E Peak Ted 0.7 [ 60.0 - 130.0 ] cm/sec LA Dimen 2D 3.3 [ 2.7 - 3.8 ] cm MV A Peak Ted 0.9 [ 100.0 - 120.0 ] cm/se c MV E/A 0.8 [ 0.8 - 1.5 ] ratio MV PHT 92.0 [ 20.0 - 100.0 ] msec MV Decel Time 314 [ 104 - 258 ] msec MV Decel [place] 2 Lat E` Ted 0.1 [ 10.0 - 15.0 ] cm/sec Lateral E/E` 6.6 [ 1.0 - 2.0 ] ratio Med E` Ted 0.1 cm/sec MV E/A 0.8 [ 0.8 - 1.5 ] ratio MVA PHT 2.4 [ 2.0 - 4.0 ] cm2 TR Peak Ted 2.6 [ 100.0 - 280.0 ] cm/se c TR Peak PG 28.0 mmHg PV Peak Ted 0.9 [ 40.0 - 80.0 ] cm/sec PV Peak PG 3.0 mmHg RVSP 31.0 [ 10.0 - 36.0 ] mmHg RA Pressure 3.0 mmHg Findings: Left Ventricle: Normal left ventricular systolic function. Normal left ventricular cavity size. Normal left ventricular wall thickness. Ejection fraction is visually estimated at 60-65 %. Tissue Doppler/Mitral Doppler indices are consistent with impaired relaxation (Stage I diastolic dysfunction). E/E'= 13. Right Ventricle: Normal right ventricular size. Normal right ventricular systolic function. Left Atrium: The left atrium is normal in size. Right Atrium: The right atrium is normal in size. Atrial Septum: Normal atrial septum. Mitral Valve: Normal appearance of the mitral valve. Trace to mild mitral valve regurgitation. Aortic Valve: Aortic sclerosis without significant stenosis. Aortic cusps appear minimally calcified. Trileaflet aortic valve. Trace to mild aortic valve regurgitation. Tricuspid Valve: Normal appearance of the tricuspid valve. The estimated Peak RVSP is 31 mmHg. There is trace tricuspid regurgitation. Pulmonic Valve: Normal pulmonic valve appearance. No evidence of pulmonic regurgitation. Pericardium: Normal pericardium with no significant pericardial effusion. Aorta: Normal aortic root. There is mild aortic root calcification. IVC: Normal size and normal respiratory collapse consistent with normal right atrial pressure. Pulmonary Artery: Normal pulmonary artery size. Conclusions: Normal left ventricular systolic function. Normal left ventricular cavity size. Normal left ventricular wall thickness. Ejection fraction is visually estimated at 60-65 %. Tissue Doppler/Mitral Doppler indices are consistent with impaired relaxation (Stage I diastolic dysfunction). E/E'= 13. Normal appearance of the mitral valve. Trace to mild mitral valve regurgitation. Aortic sclerosis without significant stenosis. Aortic cusps appear minimally calcified. Trileaflet aortic valve. Trace to mild aortic valve regurgitation. Normal appearance of the tricuspid valve. The estimated Peak RVSP is 31 mmHg. There is trace tricuspid regurgitation. Electronically Signed By: Yonatan Leyva 2018-10-13 17:13:11 PDT
--- NOTE | 2018-10-13 17:17 | DS ---
Date/Time of Note Date/Time of Note DATE: 10/13/18 TIME: 17:08 Discharge Summary Admission/Discharge Info Admit Date/Time Oct 11, 2018 at 03:35 Discharge Date/Time October 13, 2018 Discharge Diagnosis Right adnexal-abdominal mass probable [employer] tumor with elevated Ca1 25: Diabetes mellitus type 2; diastolic dysfunction; essential hypertension; Patient Condition: Fair Consults Gynecologic oncology-Dr. Yang; cardiology Dr. Leyva Procedures CT scan abdomen and pelvis IMPRESSION: 1. Continued progressive enlargement of the complex cystic pelvic mass described on prior studies. 2. Mild bilateral hydronephrosis probably secondary to ureteral compression by the above mass. 3. No evidence of bowel obstruction, bowel perforation, urinary tract stone, or focal inflammatory process. Cardiac Lexiscan IMPRESSION: 1. No evidence of perfusion defects. 2. No wall motion abnormalities. 3. The left ventricle ejection fraction at stress is 67%. IMPRESSION: 1. No Lexiscan-induced ST or T-wave changes from baseline abnormalities or diagnostic cardiac ischemia. 2. No complaints of chest pain or shortness breath during stress testing. 3. No documented premature ventricular contractions during stress testing. 4. Report of nuclear images to follow. Hx of Present Illness HPI Is a 63-year-old female coming with abdominal pain. She denies nausea vomiting diarrhea or constipation. Patient said the pain started earlier this evening. Patient has a known pelvic mass and has not sought outpatient treatment as of yet. Denies any fevers or chills. Denies any other current complaints. Pain is mild to moderate intensity with no exacerbating or alleviating factors with no radiations. 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 Patient denied nausea, vomiting, diarrhea, fever, chills, constipation, upper or lower GI bleeding episodes. She also denied chest pain, palpitation, shortness of breath, numbness, tingling, speech difficulties, vision changes or other constitutional symptoms. In the emergency room, patient's CT abdomen and pelvis again demonstrated complex cystic mass arising out of the pelvis probably from the right adnexa extending into the upper abdomen measuring 21.9 x 21.3 x 13.6 cm which has moderately increased in size since prior study in 2018. There was no evidence of bowel obstruction, perforation or other inflammatory process. Patient was given morphine for pain control in the emergency room. [employer] oncology consultation with Dr. Yang was requested from the emergency room who accepted patient. Hospitalist discussed this case which is a 63-year-old postmenopausal female who is admitted due to abdominal pain and was noted to have large pelvic mass concerning for ovarian neoplasm. Apparently the patient had prior admission and had labs done in January 2018 after reviewing her chart and was noted to have similar mass which had been increasing in the size. Tumor markers from 2018 reviewed and noted elevated Ca1 25 which is abnormal for this 63-year-old postmenopausal female. Patient apparently lost follow-up as outpatient and presented to the hospital due to abdominal pain. Currently under care of hospitalist who asked me to review records including recent imaging. Discussed with hospitalist the case need to be evaluated by [employer] oncologist. There is high likelihood of possibility of ovarian cancer in this postmenopausal female due to increasing size of the pelvic mass as well as elevated Ca1 25. Patient need to proceed with surgical management and surgery should be done by [employer] oncologist due to possibility of ovarian cancer. She is a candidate for debulking surgery. She also has some pressure symptoms because of large abdominal mass and associated hydronephrosis. Consultation with [employer] oncologist can be placed in this facility or if not feasible at this facility recommended to be transferred to a higher level of care including all [facility] and with [employer] oncologist to has expertise in cancer surgery as soon as possible, this can be arranged through case planner as well. I have discussed case with hospitalist who is currently primary team. Since the patient had not been compliant or had not capability to have a follow-up as outpatient, recommended this being arranged while the patient is in the hospital. Also recommended repeat labs including Ca1 25, as the most recent baseline lab since her most recent Ca1 25 was done in January 2018 and this also can be helpful for postop follow-up as well. If there are any other questions or concerns please contact [facility] hospitalist group. SEVERIANO SHEIKH MD HISTORY: This is a 63-year-old female who presented to the Emergency Room with increased abdominal pain. She underwent imaging studies that show a large abdominopelvic complex cystic mass at 22 x 21 cm. There is no ascites and no carcinomatosis. HISTORY OF PRESENT ILLNESS: Apparently patient was admitted here at [facility] back in January 2018 with right basal ganglia cerebrovascular accident. She now has a baseline left-sided weakness. At that time, the mass was at 19 x 17 cm. There was never a followup from the mass and now presents here for pain. CA-125 was drawn during this admission and was e levated at 144. G1 oncology consultation was requested. Patient has bleeding. Hospital Course Patient was seen in consultation by the laborist group and also by [employer] oncology. She has been seen in cardiology consultation formally cleared by them for an aggressive surgery. From my perspective she is also formally medically cleared from an internal medicine standpoint for this surgical procedure. He is stable for discharge to be seen in the office by Dr. Yang as an outpatient to set up her therapy. Home Meds Active Scripts Pantoprazole* (Pantoprazole*) 40 Mg Tablet.dr 40 MG PO BID@0600,1800, #60 TAB Prov:LINDA LINTON NP 02/12/18 Aspirin (Aspirin) 81 Mg Chew, 81 MG PO DAILY, #30 TAB Prov:LINDA LINTON NP 02/12/18 Lisinopril* (Lisinopril*) 10 Mg Tablet, 10 MG PO BID, #60 TAB Prov:LINDA LINTON NP 02/12/18 Atorvastatin* (Atorvastatin*) 80 Mg Tablet, 80 MG PO HS, #30 TAB Prov:LINDA LINTON NP 02/12/18 Amlodipine Besylate* (Amlodipine Besylate*) 2.5 Mg Tablet, 2.5 MG PO DAILY, #30 TAB Prov:LINDA LINTON NP 02/12/18 Amoxicillin* (Amoxicillin*) 500 Mg Cap, 500 MG PO BID, #20 CAP Stop date 02/20/2018. Prov:LINDA LINTON NP 02/12/18 Clarithromycin* (Clarithromycin*) 500 Mg Tablet, 500 MG PO BID for 5 Days, TAB Stop date 02/17/2018 Prov:LINDA LINTON NP 02/12/18 Reported Medications Metformin* (Glucophage*) 500 Mg Tab, 500 MG PO BID WITH MEALS, #90 TAB 02/07/18 Follow-up Plan Office of Dr. Yang in the next 1 to 2 weeks after obtaining authorization from her insurance-[employer] Primary Care Provider Kyle Zara Pending Labs Laboratory Tests Test 10/12/18 17:23 10/12/18 18:42 10/12/18 21:46 10/13/18 00:18 Bedside 95 85 Glucose mg/dL (70-220) mg/dL (70-220) Creatine 53 54 Kinase IU/L (23-200) IU/L (23-200) Creatine Kinase 1.3 1.5 Index Creatinine 0.69 0.83 Kinase MB ng/ml (0.0-2.4 ng/ml (0.0-2.4 (Mass) ) ) Troponin I < 0.012 0.013 ng/ml (0.000-0 ng/ml (0.000-0 .120) .120) Test 10/13/18 07:52 10/13/18 08:27 Bedside 66 129 Glucose mg/dL (70-220) mg/dL (70-220) Copies To: CC: YONATAN LEYVA; ADELIA YANG MD; RAGINI YANG MD ; JODIE PERLA MD Oct 13, 2018 17:17
--- NOTE | 2018-10-13 17:18 | PDOCDIS ---
Discharge Instructions DIAGNOSIS Discharge Diagnosis Right adnexal-abdominal mass probable [employer] tumor with elevated Ca1 25: Diabetes mellitus type 2; diastolic dysfunction; essential hypertension; CONDITION [id number] Patient Condition: [id number] Fair HOME CARE INSTRUCTIONS: [id number] Diet Instructions: [id number] Regular ACTIVITY: [id number] Activity Restrictions: [id number] No Restrictions FOLLOW UP/APPOINTMENTS Follow-up Plan Office of Dr. Cruz in the next 1 to 2 weeks after obtaining authorization from her insurance-JODIE LISA MD Oct 13, 2018 17:17
--- NOTE | 2018-10-15 09:11 | RADRPT ---
Vent Rate: 76 bpm RR Interval: 788 msec CO Interval: 124 msec QRS Duration: 95 msec QT Interval: 422 msec QTC Interval: 475 msec P-R-T [place]: 72 - 2 - 76 degrees Sinus rhythm...normal P axis, V-rate 50- 99 Ventricular premature complex...V complex w/ short R-R interval Electronically Signed By: Luis Evans
== END 2018-10-13 19:30 | disposition home or self-care (01) | DRG 392 ==
LOC: E/R 23:01 → 2NE 10-11 03:35 → CANRESERV 10-11 03:43 → CANBEDREQ 10-11 03:47
PROVIDERS: ADMIT Internal Medicine; ATTEND Internal Medicine
DX: R19.03 Right lower quadrant abdominal swelling, mass and lump (principal); N13.30 Unspecified hydronephrosis; E11.9 Type 2 diabetes mellitus without complications; I10 Essential (primary) hypertension; E78.5 Hyperlipidemia, unspecified; Z79.82 Long term (current) use of aspirin; Z79.4 Long term (current) use of insulin; Z86.73 Personal history of transient ischemic attack (TIA), and cerebral infarction without residual deficits
CPT/HCPCS: 36415; 71045; 74176; 78452; 80053; 80061; 81003; 82550; 82553; 82962; 83036; 83690; 83735; 84100; 84484; 85025; 86304; 87086; 93005; 93017; 93306; 96374; 96375; A9500; A9505; J1815; J2270; J2405; J2785; J7040